=== PATIENT | female | born 1980 | race Caucasian/White ===

== ENCOUNTER 2019-07-07 14:17 | Emergency (ER) | payer MEDICAID ==
[~2019-07-07] VITALS: Ht 157.5 cm; Wt 108.2 kg
[2019-07-07 14:24] VITALS: Ht 157.5 cm; Wt 108.2 kg
[2019-07-07] MEDS ORDERED: MOBIC7.5 MG PO (14:27)
[2019-07-07] MEDS ORDERED: BUSPIRONE HCL30 MG PO (14:27)
[2019-07-07 14:49] LABS: BASOPHILS 0.1 % (0-2); HEMATOCRIT 36.5 % (36.0-48.0); HEMOGLOBIN 12.6 g/dL (12-16); IMMATURE GRANULOCYTES 0.3 % (0-5); LYMPHOCYTES 23.1 % (15-50); MCH 32.4 pg (26.0-34.0); MCHC 34.5 g/dL (31.0-37.0); MCV 93.8 fL (80.0-100.0); MEAN PLATELET VOLUME 10.3 fL (7.4-10.4); MONOCYTES 6.9 % (2-11); NEUTROPHILS 68.6 % (40-80); PLATELET COUNT 235 10x3/uL (130-400); RBC 3.89 10x6/uL (4.00-5.40); RDW 13.3 % (11.5-14.5); WBC 6.8 10x3/uL (4.8-10.8)
--- NOTE | 2019-07-07 15:01 | NUR ---
According to the suicide assessment the patient requires a 1:1 observation. Provided the patient a suicide resource flyer, and a copy of the safety plan.
[2019-07-07 15:03] LABS: ANION GAP 16.1 mmol/L (8-16); CALCIUM 8.7 mg/dL (8.5-10.1); CARBON DIOXIDE 21.5 mmol/L (21.0-32.0); POTASSIUM - SERUM 3.6 mmol/L (3.5-5.1)
[2019-07-07 15:07] LABS: ALBUMIN 3.2 g/dL (3.4-5.0); BILIRUBIN - TOTAL 0.56 mg/dL (0.2-1.3); MAGNESIUM - SERUM 1.9 mg/dL (1.8-2.4); PROTEIN - SERUM 7.1 g/dL (6.4-8.2)
[2019-07-07 16:37] LABS: APPEARANCE HAZY (CLEAR); BILIRUBIN NEGATIVE (NEGATIVE); COLOR YELLOW (YELLOW); GLUCOSE NEGATIVE (NEGATIVE); KETONE NEGATIVE (NEGATIVE); NITRITE NEGATIVE (NEGATIVE); PROTEIN TRACE mg/dL (NEGATIVE); SPECIFIC GRAVITY 1.025 (1.005-1.020); UROBILINOGEN NORMAL (NORMAL)
[2019-07-07 16:41] LABS: BACTERIA MODERATE /hpf (NEGATIVE); EPITHELIAL CELLS 0-5 /hpf (0-5); RED CELLS - URINE OCC /hpf (0-5); WHITE CELLS - URINE 0-5 /hpf (NEGATIVE)
[2019-07-07 16:48] LABS: UDS - AMPHET NEGATIVE QUAL (NEGATIVE); UDS - BARB NEGATIVE QUAL (NEGATIVE); UDS - BENZO NEGATIVE QUAL (NEGATIVE); UDS - COCAINE NEGATIVE QUAL (NEGATIVE); UDS - OPIATE NEGATIVE QUAL (NEGATIVE); UDS - PCP NEGATIVE QUAL (NEGATIVE); UDS - THC NEGATIVE QUAL (NEGATIVE)
[2019-07-08 02:54] LABS: HCG SERUM NEGATIVE (NEGATIVE)
[2019-07-08 07:39] VITALS: BP 122/60
== END 2019-07-08 07:40 ==
LOC: D.ER 14:17
PROVIDERS: Family Medicine
DX: R45.851 Suicidal ideations (principal); T39.392A Poisoning by other nonsteroidal anti-inflammatory drugs [NSAID], intentional self-harm, initial encounter; T43.592A Poisoning by other antipsychotics and neuroleptics, intentional self-harm, initial encounter; Y92.9 Unspecified place or not applicable; I10 Essential (primary) hypertension; J45.909 Unspecified asthma, uncomplicated

== ENCOUNTER 2019-07-24 14:06 | Emergency (ER) | payer MEDICAID ==
[~2019-07-24] VITALS: Ht 157.5 cm; Wt 102.7 kg
[~2019-07-24 14:06] MED LIST: BUSPIRONE HCL30 MG PO; MOBIC7.5 MG PO
[2019-07-24 14:10] VITALS: Ht 157.5 cm; Wt 102.7 kg
[2019-07-24 14:42] LABS: BASOPHILS 0.1 % (0-2); EOSINOPHILS 0.6 % (0-7); HEMATOCRIT 41.7 % (36.0-48.0); HEMOGLOBIN 14.4 g/dL (12-16); IMMATURE GRANULOCYTES 0.2 % (0-5); LYMPHOCYTES 14.4 % (15-50); MCH 32.4 pg (26.0-34.0); MCHC 34.5 g/dL (31.0-37.0); MCV 93.9 fL (80.0-100.0); MEAN PLATELET VOLUME 10.8 fL (7.4-10.4); MONOCYTES 5.7 % (2-11); PLATELET COUNT 276 10x3/uL (130-400); RBC 4.44 10x6/uL (4.00-5.40); RDW 12.9 % (11.5-14.5); WBC 11.4 10x3/uL (4.8-10.8)
[2019-07-24 14:53] LABS: ANION GAP 12.6 mmol/L (8-16); CALCIUM 7.8 mg/dL (8.5-10.1); CARBON DIOXIDE 23.8 mmol/L (21.0-32.0); CREATININE - SERUM 1.5 mg/dL (0.6-1.3); POTASSIUM - SERUM 3.4 mmol/L (3.5-5.1)
[2019-07-24 14:59] LABS: ALBUMIN 3.1 g/dL (3.4-5.0); BILIRUBIN - TOTAL 0.69 mg/dL (0.2-1.3); PROTEIN - SERUM 6.5 g/dL (6.4-8.2)
[2019-07-24 18:48] VITALS: BP 114/74
== END 2019-07-24 18:54 | disposition home or self-care (01) ==
LOC: D.ER 14:06
PROVIDERS: Family Medicine
DX: E86.0 Dehydration (principal); I10 Essential (primary) hypertension